=== PATIENT | female | born 1955 | race Hispanic/Latino ===

== ENCOUNTER 2020-06-20 08:35 | Emergency (ER) | payer BC, OTHER ==
[~2020-06-20] VITALS: Ht 162.6 cm; Wt 67.1 kg
[~2020-06-20 08:35] MED LIST: ADVIL PO; LIPITOR PO
--- NOTE | 2020-06-20 09:10 | NUR ---
Eduardo kessler in [facility] - 06/20/20 at 0935 by GILMA PT GIVEN PO RODRIGUEZ
--- NOTE | 2020-06-20 09:10 | NUR ---
PT GIVEN PO CHALLENGE WITHOUT VOMITING. PT INSTRUCTED TO DRINK MORE WATER AT HOME
[2020-06-20] MEDS ORDERED: DOXYCYCLINE HY100 MG PO (09:25)
--- OUTSIDE RECORDS SUMMARY | 2020-06-20 21:09 | XMS REPORT | Continuity of Care Document ---
Author Author [facility] t Organization [facility] t Address [address] [place] [address] Phone Unavailable Care Team Providers Care Clinical Staff Pharmacist Name Role Phone DO Opal FREGOSO PCP Payers Payer Name Policy Type Policy Number Effective Date Expiration Date [id number] 2019 00:00: 00 [facility] Problems Condition Name Condition Details Condition Category Status Onset Date Resolution Date Last Treatment Date Treating Clinician Comments Source Problem Condition Active [facility] Allergies, Adverse Reactions, Alerts Allergy Name Allergy Type Status Severity Reaction(s) Onset Date Inacti ve Date Treating Clinician Comments Source Ketorolac Allergy to substance Active 2020-06-20 00:00:00 [facility] No Known Allergies DA Active U 2011-08-04 00:00:00 [facility] Social History Social Habit Start Date Stop Date Quantity Comments Source Sex Ass[birth year] At 1955 00:00:00 1955 00:00:00 Female [facility] Medications Ordered Medication Name Filled Medication Name Start Date Stop Da te Current Medication? Ordering Clinician Indication Dosage Frequency Signature (SIG) Comments Components Source Doxycycline Hyclate Doxycycline Hyclate 2020-06-20 09:25:00 Yes 100 Twice A Day [facility] Advil Advil Yes As Needed [facility] Lipitor Lipitor Yes Daily [facility] Vital Signs Vital Name Observation Time Observation Value Comments Source Weight 2020-06-20 08:59:00 148 [lb_av] [facility] BMI (Body Mass Index) 2020-06-20 08:59:00 25.4 kg/m2 [facility] Procedures This patient has no known procedures. Plan of Care Planned Activity Planned Date Details Comments Source Instructions Sinusitis - Acute [facility] Encounters Start Date/Time End Date/Time Encounter Type Admission Type Attendi [facility] Facility Care Department Encounter ID Source 2020-06-20 09:00:00 2020-06-20 09:37:00 Departed Emergency Room [facility] [id number] [facility] Results Test Description Test Time Test Comments Results Result Comments Source SCR MAMM BILATERAL DOMINIQUE CAD DIGITAL 2019-12-17 15:24:21 - SCR MAMM BILATERAL DOMINIQUE CAD DIGITALBILATERAL DIGITAL SCREENING MAMMOGRAM 3D/2D WITH CAD: 12/17/2019CLINICAL: Asymptomatic. Digital breast tomosynthesis was performed in addition to routine CC and MLO views. Current mammographic images were evaluated by either a [employer] M-Vu or a [employer] ImageChecker CAD (computer aided detection system). Comparison is made to exams dated 03/23/2019 mammogram - [facility] and 10/30/2018 mammogram - [facility]. There are scattered fibroglandular tissues in both breasts. There is a biopsy clip in the right breast. No suspicious mass, architectural distortion, malignant type calcification, or lymph node abnormality detected. Breast architecture is stable compared to prior exams.IMPRESSION: NEGATIVEThere is no mammographic evidence of malignancy. Resume annual screening mammography in one year. Aleksandr Reed M.D. ss/penrad:12/17/2019 15:24:21 Relationship Mgr: Teodora PIERRE, [facility] sent: BIRADS 1-2 Normal Mammogram BI-RADS: 1 Negative DIAG MAMM BILATERAL DOMINIQUE CAD DIGITAL 2019-03-23 10:37:13 - DIAG MAMM BILATERAL DOMINIQUE CAD DIGITALBILATERAL DIGITAL DIAGNOSTIC MAMMOGRAM 3D/2D WITH CAD: 03/23/2019CLINICAL: Followup to previous exam. Digital breast tomosynthesis was performed in addition to routine CC and MLO views. Current mammographic images were evaluated by either a [employer]kin M-Vu or a [employer] ImageChecker CAD (computer aided detection system). Comparison is made to exam dated 10/30/2018 mammogram - [facility]. There are scattered fibroglandular tissues in both breasts. There is a biopsy clip in the right breast. No suspicious mass, architectural distortion, malignant type calcification, or lymph node abnormality detected. Breast architecture is stable compared to prior exams.IMPRESSION: BENIGNThere is no mammographic evidence of malignancy. Resume annual screening mammography in one year. Didier Dawkins M.D. qn/:03/23/2019 10:37:13 Relationship Mgr: Arielle PIERRE, [facility] sent: BIRADS 1-2 Normal Mammogram BI-RADS: 2 Benign SURGICAL SPECIMENS 2018-11-21 12:15:00 RUN DATE: 11/21/18 [facility] *LIVE* PAGE 1 RUN TIME: 1215 Specimen Inquiry RUN USER: INTERFACE PATIENT: GLORIA MAIN LOC: [facility] [place] #: [id number] AGE/SX: 63/F ROOM: RE11/15/18REG DR: Vineet Fregoso DO : 55 BED: DIS: STATUS: PRE REF TLOC: SPEC #: [id number] RECD: 11/16/18 STATUS: LAURIE REIsabelle #: [id number] YESSENIA: 11/16/[address]: Vineet Fregoso DO ENTERED: 11/21/18 SP TYPE: SURG SPEC OTHR DR: No Primary or Family PhysicianORDERED: LEVEL 4 CODES: [id number] - BREAST, NOS COPIES TO: No Primary or Family Physician Vineet Fregoso DO [address] [facility] [address] [place] [address] PROCEDURES: LEVEL 4 (Incomplete) TISSUES: 1. BREAST, NOS - Breast, right, 9:00, 2 cm FN, core bx. FINAL DIAGNOSIS Breast, right, 9:00, 2 cm FN, core bx.: Ductal hyperplasia without atypia; fibrocystic disease. GROSS AND MICROSCOPIC GROSS EXAMINATION: Location: Breast, right, 9:00, 2 cm FN, core bx.. Dimensions and appearance: 0.7 x 0.3 x 0.3 cm, fibrofatty. Sections: Entirely submitted. Received in formalin are the above designated biopsies. They are composed of yellow-white fibrofatty tissue. They are submitted for microscopic examination as indicated above. MICROSCOPIC EXAMINATION: Sections of the "Breast, right, 9:00, 2 cm FN, core bx." reveal changes of ductal hyperplasia without atypia. The immunostain for e-cadherin is positive and the p63 stain shows a myoepithelial layer surrounding the areas of interest. (When special stains have been reviewed, the appropriate positive/negative controls have been reviewed and are appropriately positive/negative). CONTINUED ON NEXT PAGE --------- ---RUN DATE: 11/21/18 [facility] *LIVE* PAGE 2 RUN TIME: 1215 Specimen Inquiry RUN USER: INTERFACE SPEC #: [id number] PATIENT: GLORIA MAIN #[id number] (Continued) POST-OP DIAGNOSIS ATEC MARKER PRE-OP DIAGNOSIS 9:00 retroareolar mass, diagnosis: papillary lesion, FA, complicated FCC, CA REVIEWED BY: Signed SIGNATURE ON Delilah Boland MD 11/21/18 9385 END OF REPORT
--- NOTE | 2020-08-17 14:10 | Emergency Department Note ---
History of Present Illnes History of Present Illness Chief Complaint: Eye, Ear, Nose, Throat, Dental History of Present Illness This is a 64 year old female who presents with complaint of sinus congestion and right-sided headache. She states that she has chronic environmental allergies that her primary care physician started her on Lisa-D and a nasal spray which she is unaware of the name. She states that her symptoms have worsened despite these medications. She states that she feels that both her ears (right greater than left) feel full and congested. She says she also has lot of pressure under her right maxilla. She denies any fever or chills. She's had some nausea but no vomiting. She's had no cough. She has no sore throat. She states that she has had a dry mouth which she associates with the duration of taking the Lisa-D. Historian: Patient Arrival Mode: [employer] Head Cook Required: No Onset (how long ago): week(s) Onset quality: gradual Duration (how long): week(s) Progression: worsening Context: Denies recent surgery, Denies recent immobilization, Denies recent travel, Denies trauma/injury Relieving factors: none Exacerbating factors: none Associated symptoms: Reports headaches; Denies chest pain, Denies cough, Denies diaphoresis, Denies fever/chills, Denies loss of appetite, Denies malaise, Denies shortness of breath, Denies syncope Treatments prior to arrival: other (taking Lisa-D and a nasal spray.) Past Medical/Family History Physician Review I have reviewed the patient's past medical and family history. Any updates have been documented here. Past Medical History Recent Fever: No Clinical Suspicion of Infectio: No New/Unexplained Change in Ment: No Past Medical History: Hyperlipedemia Other Medical History: ALLERGIES Past Surgical History: Hysterectomy Other Surgery: FOOT AND EAR SURGIES Social History Smoking Cessation: Never Smoker Counseling Performed: No Alcohol Use: None Any Illegal Drug Use: No Physically hurt or threatened: No Other Any Pre-Existing Lines (PICC,: No Review of Systems Review of Systems Constitutional: Denies chills, Denies fever, Denies malaise EENTM: Reports as per HPI, Reports ear pain, Reports nose congestion; Denies blurred vision, Denies tearing, Denies double vision, Denies ear discharge, Denies throat pain, Denies throat swelling, Denies mouth pain, Denies mouth swelling Cardiovascular: Denies chest pain, Denies edema, Denies palpitations Respiratory: Denies chest congestion, Denies cough, Denies hemoptysis, Denies pain on inspiration, Denies dyspnea Gastrointestinal: Reports nausea (mild); Denies abdominal pain, Denies diarrhea, Denies vomiting Genitourinary: Denies discharge, Denies dysuria, Denies frequency, Denies hematuria Integumentary: Reports no symptoms Neurological: Reports no symptoms Psychological: Reports no symptoms Endocrine: Reports increased thirst; Denies excessive sweating, Denies intolerance to cold Hematological/Lymphatic: Denies easy bleeding, Denies easy bruising Physical Exam Related Data Allergies: Coded Allergies: ketorolac (Verified Allergy, Unknown, 06/20/20) Triage Vital Signs Vital Signs Date Time Temp Pulse Resp B/P (MAP) Pulse Ox O2 Delivery O2 Flow Rate FiO2 06/20/20 08:59 99.5 101 18 158/88 95 Physical Exam CONSTITUTIONAL Constitutional: Present well-developed, Present well-nourished; Absent ill appearing HENT HENT: Present normocephalic, Present atraumatic, Present mucosae dry, Present dentition normal, Present other (right maxillary sinus tenderness); Absent tonsillar excudate HENT L/R: Present left TM normal, Present right TM normal, Present left canal normal, Present right canal normal, Present left ext ear normal, Present right ext ear normal EYES Eyes: Reports conjunctivae normal; Denies left eye discharge, Denies right eye discharge NECK Neck: Present ROM normal, Present supple PULMONARY Pulmonary: Present effort normal, Present breath sounds normal; Absent respiratory distress (complete full sentences and handle secretions) CARDIOVASCULAR Cardiovascular: Present regular rhythm, Present heart sounds normal, Present intact distal pulses, Present capillary refill normal, Present normal rate GASTROINTESTINAL Abdominal: Present soft, Present nontender, Present bowel sounds normal; Absent guarding, Absent mass, Absent rebound, Absent left CVA tenderness, Absent right CVA tenderness GENITOURINARY SKIN Skin: Present warm, Present dry; Absent rash MUSCULOSKELETAL NEUROLOGICAL Neurological: Present alert, Present oriented x 3 PSYCHOLOGICAL Psychological: Present mood/affect normal, Present thought content normal, Present judgement normal Assessment & Plan Medical Decision Making MDM Differential dx for upper respiratory symptoms includes, but is not limited to URI, bacterial sinusitis, viral illness, allergies. Patient with signs of dehydration which seems to be due to lack of by mouth intake from her history. Tolerated by mouth in the emergency department, so does not require IV fluids and encouraged to continue by mouth hydration at home. Assessment & Plan Final Impression: (1) Sinusitis (2) Hypovolemia (3) Dehydration (4) Volume depletion Depart Disposition: HOME, SELF-CARE Last Vital Signs Date Time Temp Pulse Resp B/P (MAP) Pulse Ox O2 Delivery O2 Flow Rate FiO2 06/20/20 08:59 99.5 101 18 158/88 95 Home Meds Active Scripts Ibuprofen (IBUPROFEN) 600 Mg Tablet, 600 MG PO Q6H PRN for MODERATE PAIN (4-6), #30 TAB Prov:DARLING BOOTHE 08/05/20 Metronidazole (METRONIDAZOLE) 500 Mg Tablet, 500 MG PO Q8H, #30 TAB take with juice and food Prov:DARLING BOOTHE 08/05/20 Levofloxacin (LEVAQUIN) 750 Mg Tablet, 750 MG PO DAILY, #10 TAB Prov:DARLING BOOTHE 08/05/20 Ondansetron (ONDANSETRON ODT) 8 Mg Tab.rapdis, 4 MG SL Q4HR PRN for NAUSEA AND VOMITING, #30 TAB Prov:DARLING BOOTHE 08/05/20 Doxycycline Hyclate (DOXYCYCLINE HYCLATE) 100 Mg Capsule, 100 MG PO BID for 7 Days, #14 0 Refills Prov:MARY EDDY MD 06/20/20 Reported Medications [Lipitor] No Conflict Check, PO DAILY 11/03/16 [Advil] No Conflict Check, PO PRN 11/03/16 MARY EDDY MD Jun 20, 2020 09:55
== END 2020-06-20 09:37 | disposition home or self-care (01) ==
LOC: FSED 09:00
DX: R51 Headache (principal); J32.9 Chronic sinusitis, unspecified; E86.1 Hypovolemia; E86.0 Dehydration; E78.5 Hyperlipidemia, unspecified
CPT/HCPCS: 99282

== ENCOUNTER 2020-08-05 18:29 | Emergency (ER) | payer OTHER ==
[~2020-08-05] VITALS: Ht 162.6 cm; Wt 65.8 kg
[~2020-08-05 18:29] MED LIST changes: +DOXYCYCLINE HY100 MG PO
--- NOTE | 2020-08-05 18:50 | NUR ---
REC'D REPORT FROM OFF GOING NS.
[2020-08-05] MEDS ORDERED: SODIUM CHLORIDE 0.9% 1000ML 1,000 ML IV STA (18:54)
[2020-08-05] MEDS ORDERED: SODIUM CHLORIDE FLUSH 10 ML SYR INJ PRN (19:00)
[2020-08-05] MEDS ORDERED: ONDANSETRON HCL INJ 2MG/ML 2ML 2 MG/ML VIAL IV NR (19:00)
--- NOTE | 2020-08-05 19:02 | Emergency Department Note ---
History of Present Illnes History of Present Illness Chief Complaint: generalize abdominal pain History of Present Illness This is a 64 year old female. was doing well until several months ago then itchy eyes, nose throat(allergy symptoms) then 1 d ago fink then generalize abdominal pain. +n/v Historian: Patient Arrival Mode: Car History limited by: condition of the patient (normal) Campus Receptionist Required: No Onset (how long ago): hour(s) (14) Location: see above Quality: dull Radiation: Reports non-radiation Severity: moderate Onset quality: gradual Duration (how long): hour(s) (14) Timing of current episode: constant Progression: worsening Chronicity: new Context: Denies recent illness, Denies recent surgery, Denies recent immobilization, Denies recent travel, Denies trauma/injury, Denies new medications, Denies hx of DVT/PE, Denies non-compliance w/ medications Relieving factors: rest Exacerbating factors: movement Associated symptoms: Reports headaches, Reports nausea/vomiting Treatments prior to arrival: none Past Medical/Family History Physician Review I have reviewed the patient's past medical and family history. Any updates have been documented here. Past Medical History Recent Fever: No Clinical Suspicion of Infectio: No New/Unexplained Change in Ment: No Past Medical History: GERD, Hyperlipedemia Other Medical History: ALLERGIES, high chol Past Surgical History: Hysterectomy Other Surgery: FOOT AND EAR SURGIES Social History Smoking Cessation: Never Smoker Counseling Performed: No Alcohol Use: None Any Illegal Drug Use: No Physically hurt or threatened: No Other Any Pre-Existing Lines (PICC,: No Review of Systems Review of Systems Constitutional: Reports no symptoms EENTM: Reports as per HPI Cardiovascular: Reports no symptoms Respiratory: Reports no symptoms Gastrointestinal: Reports as per HPI Genitourinary: Reports no symptoms Musculoskeletal: Reports no symptoms Integumentary: Reports no symptoms Neurological: Reports as per HPI Psychological: Reports no symptoms Endocrine: Reports no symptoms Hematological/Lymphatic: Reports no symptoms Review of other systems: All other systems negative Physical Exam Related Data Allergies: Coded Allergies: ketorolac (Verified Allergy, Unknown, 06/20/20) Triage Vital Signs Vital Signs Date Time Temp Pulse Resp B/P (MAP) Pulse Ox O2 Delivery O2 Flow Rate FiO2 08/05/20 18:40 98.8 85 18 153/84 97 Vital signs reviewed: Yes Physical Exam CONSTITUTIONAL Constitutional: Present well-developed, Present well-nourished HENT HENT: Present normocephalic, Present atraumatic, Present oropharynx luisito ar/moist, Present nose normal HENT L/R: Present left ext ear normal, Present right ext ear normal EYES Eyes: Reports PERRL, Reports conjunctivae normal NECK Neck: Present ROM normal PULMONARY Pulmonary: Present effort normal, Present breath sounds normal CARDIOVASCULAR Cardiovascular: Present regular rhythm, Present heart sounds normal, Present capillary refill normal, Present normal rate GASTROINTESTINAL Abdominal: Present soft, Present bowel sounds normal, Present tender (rlq), Present guarding; Absent mass, Absent rebound GENITOURINARY Genitourinary: Present exam deferred SKIN Skin: Present warm, Present dry MUSCULOSKELETAL Musculoskeletal: Present ROM normal NEUROLOGICAL Neurological: Present alert, Present oriented x 3, Present no gross motor or sensory deficits PSYCHOLOGICAL Psychological: Present mood/affect normal, Present judgement normal Results Laboratory Lab results reviewed: Yes Laboratory comments cbc,bmp and lft normal Critical Care Time Comments pt signed out ama despite possibility of or permanent disability Assessment & Plan Medical Decision Making MDM see below Assessment & Plan Final Impression: (1) Headache (2) Abdominal pain (3) Left against medical advice Depart Disposition: HOME, SELF-CARE Last Vital Signs Date Time Temp Pulse Resp B/P (MAP) Pulse Ox O2 Delivery O2 Flow Rate FiO2 08/05/20 18:40 98.8 85 18 153/84 97 Home Meds Active Scripts Ibuprofen (IBUPROFEN) 600 Mg Tablet, 600 MG PO Q6H PRN for MODERATE PAIN (4-6), #30 TAB Prov:DARLING BOOTHE 08/05/20 Metronidazole (METRONIDAZOLE) 500 Mg Tablet, 500 MG PO Q8H, #30 TAB take with juice and food Prov:DARLING BOOTHE 08/05/20 Levofloxacin (LEVAQUIN) 750 Mg Tablet, 750 MG PO DAILY, #10 TAB Prov:DARLING BOOTHE 08/05/20 Ondansetron (ONDANSETRON ODT) 8 Mg Tab.rapdis, 4 MG SL Q4HR PRN for NAUSEA AND VOMITING, #30 TAB Prov:DARLING BOOTHE 08/05/20 Doxycycline Hyclate (DOXYCYCLINE HYCLATE) 100 Mg Capsule, 100 MG PO BID for 7 Days, #14 0 Refills Prov:MARY EDDY MD 06/20/20 Reported Medications [Lipitor] No Conflict Check, PO DAILY 11/03/16 [Advil] No Conflict Check, PO PRN 11/03/16 Medications in the ED Sodium Chloride 10 ml PRN PRN INJ IV SITE FLUSH; Start 08/05/20 at 19:00; Stop 09/04/20 at 18:59; Status UNV Ondansetron HCl 4 mg NOW STAT IV ; Start 08/05/20 at 18:54; Stop 08/05/20 at 18:55; Status UNV Sodium Chloride 1,000 ml @ 1,000 mls/hr Q1H STAT IV ; Start 08/05/20 at 18:54; Stop 08/05/20 at 19:53 DARLING BOOTHE Aug 05, 2020 19:02
--- OUTSIDE RECORDS SUMMARY | 2020-08-05 19:03 | XMS REPORT | Continuity of Care Document ---
Author Author [facility] t Organization [facility] Address [address] [place] [address] Phone Unavailable Care Team Providers Care Lcsw Name Role Phone DO Opal FREGOSO PCP Payers Payer Name Policy Type Policy Number Effective Date Expiration Date [id number] 2019 00:00: 00 [facility] Problems Condition Name Condition Details Condition Category Status Onset Date Resolution Date Last Treatment Date Treating Clinician Comments Source Problem Condition Active [facility] Allergies, Adverse Reactions, Alerts Allergy Name Allergy Type Status Severity Reaction(s) Onset Date Inacti ve Date Treating Clinician Comments Source Ketorolac Allergy to substance Active 2020-06-20 00:00:00 [facility] No Known Allergies DA Active U 2011-08-04 00:00:00 [facility] Social History Social Habit Start Date Stop Date Quantity Comments Source Sex Assigned At 1955 00:00:00 1955 00:00:00 Female [facility] Medications Ordered Medication Name Filled Medication Name Start Date Stop Da te Current Medication? Ordering Clinician Indication Dosage Frequency Signature (SIG) Comments Components Source Doxycycline Hyclate Doxycycline Hyclate 2020-06-20 09:25:00 Yes 100 Twice A Day [facility] Advil Advil Yes As Needed [facility] Lipitor Lipitor Yes Daily [facility] Vital Signs Vital Name Observation Time Observation Value Comments Source Weight 2020-06-20 08:59:00 148 [lb_av] [facility] BMI (Body Mass Index) 2020-06-20 08:59:00 25.4 kg/m2 [facility] Procedures This patient has no known procedures. Plan of Care Planned Activity Planned Date Details Comments Source Instructions Sinusitis - Acute [facility] Encounters Start Date/Time End Date/Time Encounter Type Admission Type Attendi [facility] Facility Care Department Encounter ID Source 2020-06-20 09:00:00 2020-06-20 09:37:00 Departed Emergency Room [facility] [place] [place] [id number] [facility] Results Test Description Test Time Test Comments Results Result Comments Source SCR MAMM BILATERAL DOMINIQUE CAD DIGITAL 2019-12-17 15:24:21 - SCR MAMM BILATERAL DOMINIQUE CAD DIGITALBILATERAL DIGITAL SCREENING MAMMOGRAM 3D/2D WITH CAD: 12/17/2019CLINICAL: Asymptomatic. Digital breast tomosynthesis was performed in addition to routine CC and MLO views. Current mammographic images were evaluated by either a [employer] M-Vu or a [employer] ImageChecker CAD (computer aided detection system). Comparison is made to exams dated 03/23/2019 mammogram - [facility] and 10/30/2018 mammogram - [facility] [...] one year. Aleksandr Reed M.D. ss/penrad:12/17/2019 15:24:21 Chief Quality Officer: Teodora PIERRE, [facility] sent: BIRADS 1-2 Normal Mammogram BI-RADS: 1 Negative DIAG MAMM BILATERAL DOMINIQUE CAD DIGITAL 2019-03-23 10:37:13 - DIAG MAMM BILATERAL DOMINIQUE CAD DIGITALBILATERAL DIGITAL DIAGNOSTIC MAMMOGRAM 3D/2D WITH CAD: 03/23/2019CLINICAL: Followup to previous exam. Digital breast tomosynthesis was performed in addition to routine CC and MLO views. Current mammographic images were evaluated by either a [employer] M-Vu or a [employer] ImageChecker CAD (computer aided detection system). Comparison [...] one year. Didier Dawkins M.D. qn/:03/23/2019 10:37:13 Chief Quality Officer: Arielle PIERRE, [facility] sent: BIRADS 1-2 Normal Mammogram BI-RADS: 2 Benign SURGICAL SPECIMENS 2018-11-21 12:15:00 RUN DATE: 11/21/18 [facility] *LIVE* PAGE 1 RUN TIME: 1215 Specimen Inquiry RUN USER: INTERFACE PATIENT: GLORIA MAIN LOC: [facility] [place] #: [id number] AGE/SX: 63/F ROOM: RE11/15/18REG DR: Vineet Fregoso DO : 55 BED: DIS: STATUS: PRE REF TLOC: SPEC #: [id number] RECD: 11/16/18 STATUS: LAURIE KIRK #: [id number] YESSENIA: 11/16/[address]: Vineet Fregoso DO ENTERED: 11/21/18 SP TYPE: SURG SPEC OTHR DR: No Primary or Family PhysicianORDERED: LEVEL 4 CODES: [id number] - BREAST, NOS COPIES TO: No Primary or Family Physician Vineet Fregoso DO [address] [facility] [address] [place] [address] PROCEDURES: LEVEL 4 (Incomplete) TISSUES: 1. BREAST, [...] NEXT PAGE --------- ---RUN DATE: 11/21/18 [facility] *L[facility]* PAGE 2 RUN TIME: 1215 Specimen Inquiry RUN USER: INTERFACE SPEC #: [id number] PATIENT: GLORIA MAIN #[id number] (Continued) POST-OP DIAGNOSIS ATEC MARKER PRE-OP DIAGNOSIS 9:00 retroareolar mass, diagnosis: papillary lesion, FA, complicated FCC, [place] REVIEWED BY: Signed SIGNATURE ON Delilah Boland MD 11/21/18 3510 END OF REPORT
[2020-08-05] MEDS ORDERED: ONDANSETRON HCL INJ 2MG/ML 2ML 2 MG/ML VIAL IV STA (19:16)
[2020-08-05] MEDS ORDERED: SODIUM CHLORIDE 0.9% 1000ML 1,000 ML ONE (19:20)
[2020-08-05] MEDS ORDERED: ONDANSETRON HCL INJ 2MG/ML 2ML 2 MG/ML VIAL ONE (19:20)
[2020-08-05] MEDS ORDERED: SODIUM CHLORIDE 0.9% 50ML 0 ML ONE (19:27)
[2020-08-05] MEDS ORDERED: IOPAMIDOL 370 MG/ML 200 ML INFUS..BTL INJ ONE (19:27)
[2020-08-05] MEDS ORDERED: METHYLPREDNISOLONE SOD SUCC 125 MG/2ML VIAL ONE (19:30)
[2020-08-05] MEDS ORDERED: METHYLPREDNISOLONE SOD SUCC 125 MG/2ML VIAL IV ONE (19:30)
--- NOTE | 2020-08-05 20:00 | NUR ---
PT AND SPOUSE CONCERNED OVER DEDUCTABLE THEY WILL HAVE TO PAY. NOT WILLING TO HAVE CT'S DONE. REQUESTING TO LEAVE. MD INFORMED AND IN TO SPEAK WITH PT AND SPOUSE.
[2020-08-05] MEDS ORDERED: LEVAQUIN750 MG PO (20:09)
[2020-08-05] MEDS ORDERED: ONDANSETRON ODT8 MG SL (20:09)
[2020-08-05] MEDS ORDERED: METRONIDAZOLE500 MG PO (20:09)
[2020-08-05] MEDS ORDERED: IBUPROFEN600 MG PO (20:09)
--- NOTE | 2020-08-05 20:10 | NUR ---
PT SIGNED AMA FORMS. DISCHARGED WITH DC INST AND RX
[2020-08-05 20:18] VITALS: BP 150/85
== END 2020-08-05 20:10 | disposition home or self-care (01) ==
LOC: FSED 19:01
DX: R51 Headache (principal); R10.84 Generalized abdominal pain; R11.2 Nausea with vomiting, unspecified; E78.5 Hyperlipidemia, unspecified; K21.9 Gastro-esophageal reflux disease without esophagitis
CPT/HCPCS: 80048; 80076; 81003; 85025; 96374; 96376; 99283; J2405; J2930; J7030; Q9967

== ENCOUNTER 2020-11-30 22:17 | Emergency (ER) | payer OTHER ==
[~2020-11-30 22:17] MED LIST changes: +IBUPROFEN600 MG PO; +LEVAQUIN750 MG PO; +METRONIDAZOLE500 MG PO; +ONDANSETRON ODT8 MG SL
== END 2020-11-30 23:10 | disposition left against medical advice (07) ==
LOC: ER 23:10
DX: R06.02 Shortness of breath (principal)

== ENCOUNTER 2020-12-12 18:10 | Emergency (ER) | payer OTHER ==
[~2020-12-12] VITALS: Ht 162.6 cm; Wt 65.8 kg
[2020-12-12 19:38] LABS: BASOPHILS % 0.4 % (0.0-1.0); EOSINOPHILS % 0.4 % (0.0-6.0); HEMATOCRIT 43.1 % (34.2-44.1); HEMOGLOBIN 13.6 g/dL (12.0-16.0); LYMPHOCYTES # (AUTO) 1.6 (1.0-3.2); MEAN CORPUSCULAR HEMOGLOBIN 30.3 pg (28-32); MEAN CORPUSCULAR HGB CONC 31.6 g/dL (31-35); MONOCYTES # (AUTO) 0.6 (0.2-0.8); MONOCYTES % 7.9 % (4.4-11.3); NEUTROPHILS # (AUTO) 5.8 (2.1-6.9); NEUTROPHILS % 71.1 % (38.7-80.0); PLATELET COUNT 185 x10e3/uL (140-360); RED BLOOD COUNT 4.49 x10e6/uL (3.6-5.1); RED CELL DISTRIBUTION WIDTH 13.1 % (11.7-14.4)
[2020-12-12 19:52] LABS: ALANINE AMINOTRANSFERASE 25 IU/L (0-55); ALBUMIN 4.7 g/dL (3.5-5.0); ALBUMIN/GLOBULIN RATIO 1.5 (0.8-2.0); ALKALINE PHOSPHATASE 52 IU/L (40-150); ANION GAP 17.6 mmol/L (8-16); BLOOD UREA NITROGEN 5 mg/dL (7-26); BUN/CREATININE RATIO 8 (6-25); CALCIUM 9.4 mg/dL (8.4-10.2); CARBON DIOXIDE 23 mmol/L (22-29); CHLORIDE 103 mmol/L (98-107); CREATININE, SERUM 0.66 mg/dL (0.57-1.11); EST GLOMERULAR FILTRATION RATE > 60 ML/MIN (60-); GLUCOSE 112 mg/dL (74-118); POTASSIUM 3.6 mmol/L (3.5-5.1); SODIUM 140 mmol/L (136-145)
[2020-12-12 19:53] LABS: LIPASE 10 U/L (8-78)
[2020-12-12] MEDS ORDERED: DONNATAL/LIDOCAINE/MAALOX 30 ML SUSP PO ONE (20:45)
[2020-12-12] MEDS ORDERED: LIDOCAINE VISC 2% SOLN 15 ML UDC PO ONE (21:00)
[2020-12-12] MEDS ORDERED: BELLADONNA ALK/PHENOBARBITAL 5 ML UDC PO ONE (21:00)
[2020-12-12] MEDS ORDERED: MAGNESIUM/ALUMINUM/SIMETHICONE 30 ML UDC PO ONE (21:00)
== END 2020-12-12 21:11 | disposition home or self-care (01) ==
LOC: ER 18:43
DX: R07.9 Chest pain, unspecified (principal); I10 Essential (primary) hypertension; E78.5 Hyperlipidemia, unspecified; Z88.8 Allergy status to other drugs, medicaments and biological substances
CPT/HCPCS: 36415; 71045; 80053; 83690; 84484; 85025; 93005; 99284

== ENCOUNTER 2021-02-08 13:03 | Inpatient (IN) | payer MEDICARE ==
[2021-02-08] VITALS (8 sets, daily range): BP systolic 117–144; BP diastolic 75–83
[~2021-02-08] VITALS: Ht 162.6 cm; Wt 55.8 kg
[2021-02-08] MEDS ORDERED: SODIUM CHLORIDE 0.9% 1000ML 1,000 ML IV STA (13:07)
[2021-02-08] MEDS ORDERED: PANTOPRAZOLE 40 MG 10ML VIAL IV NR (13:30)
[2021-02-08] MEDS ORDERED: ONDANSETRON HCL INJ 2MG/ML 2ML 2 MG/ML VIAL IV NR (13:30)
[2021-02-08] MEDS ORDERED: MORPHINE SULFATE INJ 2 MG/ML SYR IV ONE (13:30)
[2021-02-08 13:32] LABS: BASOPHILS % 0.6 % (0.0-1.0); EOSINOPHILS # (AUTO) 0.1 (0.0-0.4); EOSINOPHILS % 0.7 % (0.0-6.0); HEMATOCRIT 41.5 % (34.2-44.1); HEMOGLOBIN 13.3 g/dL (12.0-16.0); LYMPHOCYTES # (AUTO) 1.8 (1.0-3.2); LYMPHOCYTES % 25.6 % (18.0-39.1); MEAN CORPUSCULAR HEMOGLOBIN 30.9 pg (28-32); MEAN CORPUSCULAR VOLUME 96.3 fL (81-99); MONOCYTES # (AUTO) 0.6 (0.2-0.8); MONOCYTES % 8.4 % (4.4-11.3); NEUTROPHILS # (AUTO) 4.6 (2.1-6.9); NEUTROPHILS % 64.4 % (38.7-80.0); PLATELET COUNT 186 x10e3/uL (140-360); RED BLOOD COUNT 4.31 x10e6/uL (3.6-5.1); RED CELL DISTRIBUTION WIDTH 13.2 % (11.7-14.4)
[2021-02-08 13:33] LABS: CLARITY,URINE CLEAR (CLEAR); COLOR,URINE YELLOW (YELLOW); KETONES,URINE TRACE (NEGATIVE); LEUKOCYTE ESTERASE ,URINE NEGATIVE (NEGATIVE); NITRITE,URINE NEGATIVE (NEGATIVE); PROTEIN,URINE DIPSTICK NEGATIVE (NEGATIVE); URINE UROBILINOGEN 0.2 mg/dL (0.2 - 1)
[2021-02-08 13:39] LABS: BACTERIA,URINE FEW /HPF; EPITHELIAL CELLS,URINE FEW /LPF; RBC,URINE 0-5 /HPF (0-5); WBC,URINE (MAN) 0-5 /HPF (0-5)
[2021-02-08 13:40] LABS: INR 0.94; PROTHROMBIN TIME 13.1 seconds (11.9-14.5)
[2021-02-08 13:41] LABS: PARTIAL THROMBOPLASTIN TIME 26.9 seconds (23.8-35.5)
[2021-02-08 13:51] LABS: ALANINE AMINOTRANSFERASE 10 IU/L (0-55); ALBUMIN 4.5 g/dL (3.5-5.0); ALBUMIN/GLOBULIN RATIO 1.3 (0.8-2.0); ALKALINE PHOSPHATASE 63 IU/L (40-150); AMYLASE 51 U/L (25-125); ANION GAP 13.5 mmol/L (8-16); BLOOD UREA NITROGEN 6 mg/dL (7-26); BUN/CREATININE RATIO 9 (6-25); CALCIUM 9.2 mg/dL (8.4-10.2); CARBON DIOXIDE 27 mmol/L (22-29); CHLORIDE 103 mmol/L (98-107); CREATINE KINASE 113 IU/L (29-168); CREATININE, SERUM 0.66 mg/dL (0.57-1.11); EST GLOMERULAR FILTRATION RATE > 60 ML/MIN (60-); GLUCOSE 108 mg/dL (74-118); LIPASE 16 U/L (8-78); MAGNESIUM 2.2 MG/DL (1.3-2.1); POTASSIUM 3.5 mmol/L (3.5-5.1); SODIUM 140 mmol/L (136-145)
[2021-02-08] MEDS ORDERED: BELLADONNA ALK/PHENOBARBITAL 5 ML UDC PO NR (14:00)
[2021-02-08] MEDS ORDERED: MAGNESIUM/ALUMINUM/SIMETHICONE 30 ML UDC PO NR (14:00)
[2021-02-08] MEDS ORDERED: IOPAMIDOL 370 MG/ML 200 ML INFUS..BTL INJ ONE (14:05)
[2021-02-08] MEDS ORDERED: SODIUM CHLORIDE 0.9% 50ML 50 ML ONE (14:05)
[2021-02-08] MEDS ORDERED: LIDOCAINE VISC 2% SOLN 15 ML UDC PO NR (14:15)
[2021-02-08] MEDS ORDERED: MORPHINE SULFATE INJ 2 MG/ML SYR IV PRN (16:15)
[2021-02-08] MEDS ORDERED: SODIUM CHLORIDE 0.9% 1000ML 1,000 ML IV SCH (16:15)
[2021-02-08] MEDS ORDERED: ONDANSETRON HCL INJ 2MG/ML 2ML 2 MG/ML VIAL IV PRN (16:15)
[2021-02-08] MEDS ORDERED: OMEPRAZOLE40 MG PO (17:56)
[2021-02-08] MEDS ORDERED: PEPCID20 MG PO (17:56)
[2021-02-08] MEDS ORDERED: FAMOTIDINE20 MG PO (18:02)
[2021-02-08] MEDS ORDERED: CRESTOR10 MG PO (19:33)
[2021-02-08] MEDS: PANTOPRAZOLE 40 MG 10ML VIAL IV SCH (21:08)
[2021-02-08] MEDS: MORPHINE SULFATE INJ 4 MG/ML INJ 1ML IV PRN (21:14)
[2021-02-08 22:24] LABS: CREATINE KINASE MB 0.4 ng/mL (0-5.0)
[2021-02-09] VITALS (8 sets, daily range): BP systolic 92–131; BP diastolic 55–74
[2021-02-09 05:17] LABS: BASOPHILS # (AUTO) 0.1 (0.0-0.1); BASOPHILS % 0.8 % (0.0-1.0); EOSINOPHILS # (AUTO) 0.1 (0.0-0.4); EOSINOPHILS % 1.6 % (0.0-6.0); HEMATOCRIT 36.1 % (34.2-44.1); HEMOGLOBIN 11.4 g/dL (12.0-16.0); LYMPHOCYTES # (AUTO) 1.8 (1.0-3.2); LYMPHOCYTES % 28.1 % (18.0-39.1); MEAN CORPUSCULAR HEMOGLOBIN 30.4 pg (28-32); MEAN CORPUSCULAR HGB CONC 31.6 g/dL (31-35); MEAN CORPUSCULAR VOLUME 96.3 fL (81-99); MONOCYTES # (AUTO) 0.6 (0.2-0.8); MONOCYTES % 9.8 % (4.4-11.3); NEUTROPHILS # (AUTO) 3.7 (2.1-6.9); NEUTROPHILS % 59.5 % (38.7-80.0); PLATELET COUNT 165 x10e3/uL (140-360); RED BLOOD COUNT 3.75 x10e6/uL (3.6-5.1); RED CELL DISTRIBUTION WIDTH 13.2 % (11.7-14.4)
[2021-02-09 05:38] LABS: ALANINE AMINOTRANSFERASE 10 IU/L (0-55); ALBUMIN 3.5 g/dL (3.5-5.0); ALBUMIN/GLOBULIN RATIO 1.4 (0.8-2.0); ALKALINE PHOSPHATASE 46 IU/L (40-150); ANION GAP 9.7 mmol/L (8-16); BLOOD UREA NITROGEN < 5 mg/dL (7-26); CALCIUM 8.5 mg/dL (8.4-10.2); CARBON DIOXIDE 26 mmol/L (22-29); CHLORIDE 107 mmol/L (98-107); CREATININE, SERUM 0.64 mg/dL (0.57-1.11); EST GLOMERULAR FILTRATION RATE > 60 ML/MIN (60-); GLUCOSE 85 mg/dL (74-118); POTASSIUM 3.7 mmol/L (3.5-5.1); SODIUM 139 mmol/L (136-145)
[2021-02-09 05:40] LABS: BUN/CREATININE RATIO 8 (6-25)
[2021-02-09 05:54] LABS: CREATINE KINASE 87 IU/L (29-168)
[2021-02-09] MEDS: PANTOPRAZOLE 40 MG 10ML VIAL IV SCH ×2 (09:00→21:34)
[2021-02-09] MEDS ORDERED: ZOLPIDEM TARTRATE 5 MG TAB PO PRN (13:00)
[2021-02-09] MEDS ORDERED: ACETAMINOPHEN 325 MG TAB PO PRN (13:00)
[2021-02-09] MEDS ORDERED: DOCUSATE SODIUM 100 MG CAP PO PRN (13:00)
[2021-02-09] MEDS: MORPHINE SULFATE INJ 4 MG/ML INJ 1ML IV PRN (13:55)
[2021-02-09 14:08] LABS: CREATINE KINASE 108 IU/L (29-168)
[2021-02-09] MEDS ORDERED: PANTOPRAZOL 40MG/SOD CHL 0.9% 250 ML IV SCH (23:00)
[2021-02-09] MEDS ORDERED: SODIUM CHLORIDE 0.9% IV SCH (23:15)
[2021-02-09] MEDS ORDERED: PANTOPRAZOLE IV SCH (23:15)
[2021-02-09] MEDS: METOCLOPRAMIDE HCL 10 MG/2ML VIAL IV SCH (23:21)
[2021-02-09] MEDS ORDERED: PANTOPRAZOLE 40 MG 10ML VIAL ONE (23:34)
[2021-02-10] VITALS (7 sets, daily range): BP systolic 94–123; BP diastolic 53–78
[2021-02-10] MEDS: METOCLOPRAMIDE HCL 10 MG/2ML VIAL IV SCH ×2 (05:30→11:52)
[2021-02-10] MEDS ORDERED: PANTOPRAZOL 40MG/SOD CHL 0.9% 50 ML IV SCH (12:00)
[2021-02-10] MEDS ORDERED: LIDOCAINE HCL 2% LOCAL INJ 5 ML SDV VIAL INJ ONE (13:50)
[2021-02-10] MEDS ORDERED: PROPOFOL IV EMULSION 10 MG/ML 20 ML VIAL ONE (13:50)
[2021-02-10] MEDS ORDERED: PANTOPRAZOLE SO40 MG PO (17:46)
[2021-02-10] MEDS ORDERED: REGLAN10 MG PO (17:46)
[2021-02-11] MEDS ORDERED: BENADRYL25 M1 PO (17:57)
[2021-02-11] MEDS ORDERED: FAMOTIDINE20 MG PO (17:57)
[2021-02-11] MEDS ORDERED: PREDNISONE20 MG PO (17:57)
== END 2021-02-10 18:22 | disposition home or self-care (01) | DRG 392 ==
LOC: ER 13:15 → ERHOLD 16:09 → INTOOBSV 16:09 → MED/SURG 17:20 → OBSVTOIN 02-10 11:23
PROVIDERS: ADMIT Internal Medicine; ATTEND Internal Medicine
PROC: 0DB68ZX Excision of Stomach, Via Natural or Artificial Opening Endoscopic, Diagnostic (ICD-10-PCS; 2021-02-10)
PROC: 0DB98ZX Excision of Duodenum, Via Natural or Artificial Opening Endoscopic, Diagnostic (ICD-10-PCS; principal; 2021-02-10 15:00)
DX: K29.70 Gastritis, unspecified, without bleeding (principal); K21.9 Gastro-esophageal reflux disease without esophagitis; K20.90 Esophagitis, unspecified without bleeding; I10 Essential (primary) hypertension; E78.5 Hyperlipidemia, unspecified; Z88.8 Allergy status to other drugs, medicaments and biological substances; Z20.822 Contact with and (suspected) exposure to COVID-19
CPT/HCPCS: 36415; 43239; 74177; 76705; 78227; 80053; 81001; 82150; 82550; 82553; 83690; 83735; 84134; 84484; 85025; 85610; 85730; 87086; 88305; 88312; 93005; 99284; A9537; G0378; J2001; J2270; J2405; J2765; J7030; J7050; Q9967; U0002

== ENCOUNTER 2021-02-11 17:30 | Emergency (ER) | payer MEDICARE ==
[~2021-02-11] VITALS: Ht 315 cm; Wt 55.8 kg
[~2021-02-11 17:30] MED LIST changes: +CRESTOR10 MG PO; +FAMOTIDINE20 MG PO; +OMEPRAZOLE40 MG PO; +PANTOPRAZOLE SO40 MG PO; +PEPCID20 MG PO; +REGLAN10 MG PO
[2021-02-11] MEDS ORDERED: FAMOTIDINE 20 MG TAB PO ONE (17:45)
[2021-02-11] MEDS ORDERED: PREDNISONE 20 MG TAB PO ONE (17:45)
[2021-02-11] MEDS ORDERED: DIPHENHYDRAMINE HCL 25 MG CAP PO ONE (17:45)
[2021-02-11] MEDS ORDERED: BENADRYL25 M1 PO (17:57)
[2021-02-11] MEDS ORDERED: PREDNISONE20 MG PO (17:57)
[2021-02-11] MEDS ORDERED: FAMOTIDINE20 MG PO (17:57)
[2021-02-11] MEDS ORDERED: DIPHENHYDRAMINE HCL 25 MG CAP ONE (18:04)
[2021-02-11] MEDS ORDERED: PREDNISONE 10 MG TAB ONE (18:04)
[2021-02-11 18:23] VITALS: BP 118/67
== END 2021-02-11 18:26 | disposition home or self-care (01) ==
LOC: ER 17:33
DX: R21 Rash and other nonspecific skin eruption (principal); T78.40XA Allergy, unspecified, initial encounter; I10 Essential (primary) hypertension; E78.5 Hyperlipidemia, unspecified; K21.9 Gastro-esophageal reflux disease without esophagitis
CPT/HCPCS: 99283; J7512

== ENCOUNTER 2022-09-12 06:07 | Emergency (ER) | payer MEDICARE ==
[~2022-09-12] VITALS: Ht 162.6 cm; Wt 55.8 kg
[~2022-09-12 06:07] MED LIST changes: +BENADRYL25 M1 PO; +PREDNISONE20 MG PO
[2022-09-12] MEDS ORDERED: SODIUM CHLORIDE 0.9% 1000ML 1,000 ML IV STA (06:21)
[2022-09-12] MEDS ORDERED: LORAZEPAM INJ 2 MG/ML VIAL IV ONE (06:30)
[2022-09-12] MEDS ORDERED: LORAZEPAM INJ 2 MG/ML VIAL ONE (06:39)
[2022-09-12 06:41] LABS: BASOPHILS # (AUTO) 0.1 (0.0-0.1); BASOPHILS % 0.8 % (0.0-1.0); EOSINOPHILS # (AUTO) 0.1 (0.0-0.4); EOSINOPHILS % 1.8 % (0.0-6.0); HEMATOCRIT 42.5 % (34.2-44.1); HEMOGLOBIN 13.3 g/dL (12.0-16.0); LYMPHOCYTES # (AUTO) 2.2 (1.0-3.2); LYMPHOCYTES % 36.3 % (18.0-39.1); MEAN CORPUSCULAR HEMOGLOBIN 30.4 pg (28-32); MEAN CORPUSCULAR HGB CONC 31.3 g/dL (31-35); MONOCYTES # (AUTO) 0.6 (0.2-0.8); MONOCYTES % 10.2 % (4.4-11.3); NEUTROPHILS # (AUTO) 3.1 (2.1-6.9); NEUTROPHILS % 50.6 % (38.7-80.0); PLATELET COUNT 181 x10e3/uL (140-360); RED BLOOD COUNT 4.38 x10e6/uL (3.6-5.1); RED CELL DISTRIBUTION WIDTH 12.6 % (11.7-14.4)
[2022-09-12 06:45] LABS: INR 0.89; PROTHROMBIN TIME 12.9 seconds (11.9-14.5)
[2022-09-12 06:46] LABS: PARTIAL THROMBOPLASTIN TIME 27.2 seconds (23.8-35.5)
[2022-09-12 06:56] LABS: ALANINE AMINOTRANSFERASE 11 IU/L (0-55); ALBUMIN 4.1 g/dL (3.5-5.0); ALBUMIN/GLOBULIN RATIO 1.3 (0.8-2.0); ALKALINE PHOSPHATASE 61 IU/L (40-150); ANION GAP 17.5 mmol/L (8-16); BLOOD UREA NITROGEN 14 mg/dL (7-26); BUN/CREATININE RATIO 20 (6-25); CALCIUM 9.1 mg/dL (8.4-10.2); CARBON DIOXIDE 22 mmol/L (22-29); CHLORIDE 108 mmol/L (98-107); CREATINE KINASE 74 IU/L (29-168); CREATININE, SERUM 0.69 mg/dL (0.57-1.11); GLUCOSE 110 mg/dL (74-118); POTASSIUM 3.5 mmol/L (3.5-5.1); SODIUM 144 mmol/L (136-145)
[2022-09-12] MEDS ORDERED: KLONOPIN0.5 MG PO (07:46)
== END 2022-09-12 07:58 | disposition home or self-care (01) ==
LOC: ER 06:15
DX: R20.2 Paresthesia of skin (principal); F41.9 Anxiety disorder, unspecified; I10 Essential (primary) hypertension; E78.5 Hyperlipidemia, unspecified; K21.9 Gastro-esophageal reflux disease without esophagitis
CPT/HCPCS: 36415; 70450; 71045; 80053; 82550; 82553; 83735; 84484; 85025; 85610; 85730; 93005; 99284; J2060; J7030

== ENCOUNTER 2022-12-21 18:53 | Observation (INO) | payer MEDICARE ==
[~2022-12-21] VITALS: Ht 162.6 cm; Wt 55.8 kg
[~2022-12-21 18:53] MED LIST changes: +KLONOPIN0.5 MG PO; +VITAMIN B-121000 MCG PO; +VITAMIN D3 COM1 EACH PO
[2022-12-21] MEDS ORDERED: ONDANSETRON HCL INJ 2MG/ML 2ML 2 MG/ML VIAL IV STA ×2 (19:29→20:40)
[2022-12-21] MEDS ORDERED: SODIUM CHLORIDE 0.9% 1000ML 1,000 ML IV ONE (19:45)
[2022-12-21] MEDS ORDERED: SODIUM CHLORIDE 0.9% 1000ML 1,000 ML ONE (19:54)
[2022-12-21 20:07] LABS: BASOPHILS % 0.5 % (0.0-1.0); EOSINOPHILS % 0.4 % (0.0-6.0); HEMATOCRIT 44.5 % (34.2-44.1); HEMOGLOBIN 13.5 g/dL (12.0-16.0); LYMPHOCYTES # (AUTO) 1.2 (1.0-3.2); LYMPHOCYTES % 14.8 % (18.0-39.1); MEAN CORPUSCULAR HEMOGLOBIN 30.1 pg (28-32); MEAN CORPUSCULAR HGB CONC 30.3 g/dL (31-35); MEAN CORPUSCULAR VOLUME 99.3 fL (81-99); MONOCYTES # (AUTO) 0.5 (0.2-0.8); MONOCYTES % 5.5 % (4.4-11.3); NEUTROPHILS # (AUTO) 6.6 (2.1-6.9); NEUTROPHILS % 78.7 % (38.7-80.0); PLATELET COUNT 197 x10e3/uL (140-360); RED BLOOD COUNT 4.48 x10e6/uL (3.6-5.1); RED CELL DISTRIBUTION WIDTH 12.7 % (11.7-14.4)
[2022-12-21 20:24] LABS: ALBUMIN 4.2 g/dL (3.5-5.0); ALBUMIN/GLOBULIN RATIO 1.2 (0.8-2.0); ANION GAP 16.7 mmol/L (8-16); CALCIUM 9.4 mg/dL (8.4-10.2); CREATININE, SERUM 0.68 mg/dL (0.57-1.11); POTASSIUM 3.7 mmol/L (3.5-5.1)
[2022-12-21] MEDS ORDERED: SODIUM CHLORIDE 0.9% 1000ML 1,000 ML IV STA (20:40)
[2022-12-21] MEDS ORDERED: FAMOTIDINE 20 MG/2 ML VIAL IV STA (20:40)
[2022-12-21] MEDS ORDERED: IOPAMIDOL 370 MG/ML 100 ML INFUS..BTL INJ ONE (20:49)
[2022-12-21] MEDS ORDERED: Morphine 4mg INJECTION 4 MG/ML INJ IV PRN (21:30)
[2022-12-21 22:17] LABS: CREATINE KINASE MB 1.2 ng/mL (0-5.0)
[2022-12-21] MEDS: ONDANSETRON HCL INJ 2MG/ML 2ML 2 MG/ML VIAL IV PRN (23:27)
[2022-12-21] MEDS: SODIUM CHLORIDE 0.9% 1000ML 1,000 ML IV SCH (23:31)
[2022-12-22] VITALS (7 sets, daily range): BP systolic 103–134; BP diastolic 49–83
[2022-12-22] MEDS ORDERED: OMEPRAZOLE40 MG PO (00:06)
[2022-12-22] MEDS ORDERED: METOCLOPRAMIDE HCL 10 MG/2ML VIAL IV STA (00:32)
[2022-12-22] MEDS ORDERED: BISACODYL 5 MG TAB EC PO ONE ×2 (02:00→02:30)
[2022-12-22 05:53] LABS: BASOPHILS % 0.4 % (0.0-1.0); HEMATOCRIT 38.4 % (34.2-44.1); HEMOGLOBIN 12.4 g/dL (12.0-16.0); LYMPHOCYTES # (AUTO) 1.2 (1.0-3.2); LYMPHOCYTES % 17.9 % (18.0-39.1); MEAN CORPUSCULAR HEMOGLOBIN 30.2 pg (28-32); MEAN CORPUSCULAR HGB CONC 32.3 g/dL (31-35); MEAN CORPUSCULAR VOLUME 93.7 fL (81-99); MONOCYTES # (AUTO) 0.5 (0.2-0.8); MONOCYTES % 7.7 % (4.4-11.3); NEUTROPHILS # (AUTO) 5.1 (2.1-6.9); NEUTROPHILS % 73.7 % (38.7-80.0); PLATELET COUNT 181 x10e3/uL (140-360); RED CELL DISTRIBUTION WIDTH 12.8 % (11.7-14.4)
[2022-12-22 06:11] LABS: ALBUMIN 3.8 g/dL (3.5-5.0); ALBUMIN/GLOBULIN RATIO 1.3 (0.8-2.0); ANION GAP 11.1 mmol/L (8-16); CALCIUM 8.9 mg/dL (8.4-10.2); CREATININE, SERUM 0.64 mg/dL (0.57-1.11); POTASSIUM 4.1 mmol/L (3.5-5.1)
[2022-12-22] MEDS: SODIUM CHLORIDE 0.9% 1000ML 1,000 ML IV SCH ×2 (06:14→18:07)
[2022-12-22] MEDS: METOCLOPRAMIDE HCL 10 MG/2ML VIAL IV SCH ×3 (06:23→18:07)
[2022-12-22] MEDS: ONDANSETRON HCL INJ 2MG/ML 2ML 2 MG/ML VIAL IV PRN (06:23)
[2022-12-22 06:39] LABS: CREATINE KINASE MB 1.1 ng/mL (0-5.0)
[2022-12-22] MEDS ORDERED: METOCLOPRAMIDE HCL 10 MG/2ML VIAL ONE (12:31)
[2022-12-22] MEDS ORDERED: GLUCAGON FOR INJ 1 MG VIAL ONE (12:31)
[2022-12-22] MEDS ORDERED: LIDOCAINE HCL 2% LOCAL INJ 5 ML SDV VIAL INJ ONE (12:31)
[2022-12-22] MEDS ORDERED: PROPOFOL IV EMULSION 10 MG/ML 20 ML VIAL ONE (12:31)
[2022-12-22] MEDS ORDERED: HYOSCYAMINE SULFATE 0.5 MG/ML INJ ONE (12:31)
[2022-12-22 14:16] LABS: CREATINE KINASE 74 IU/L (29-168)
== END 2022-12-22 18:45 | disposition home or self-care (01) ==
LOC: ER 19:05 → ERHOLD 21:24 → MED/SURG3 23:03
PROVIDERS: ADMIT Family Medicine; ATTEND Family Medicine
DX: T50.995A Adverse effect of other drugs, medicaments and biological substances, initial encounter (principal); R11.10 Vomiting, unspecified; D12.0 Benign neoplasm of cecum; D12.2 Benign neoplasm of ascending colon; K57.30 Diverticulosis of large intestine without perforation or abscess without bleeding; K59.09 Other constipation; K64.8 Other hemorrhoids; K21.00 Gastro-esophageal reflux disease with esophagitis, without bleeding; Z71.3 Dietary counseling and surveillance; I10 Essential (primary) hypertension; Z71.89 Other specified counseling; E78.5 Hyperlipidemia, unspecified; M54.50 Low back pain, unspecified; E53.8 Deficiency of other specified B group vitamins; N81.10 Cystocele, unspecified; Z88.6 Allergy status to analgesic agent; Z88.8 Allergy status to other drugs, medicaments and biological substances; Z20.822 Contact with and (suspected) exposure to COVID-19; Z79.899 Other long term (current) drug therapy; Z68.25 Body mass index [BMI] 25.0-25.9, adult; Z80.0 Family history of malignant neoplasm of digestive organs
CPT/HCPCS: 36415 ×2; 45380; 45385; 74177; 80053 ×2; 82550 ×2; 82553 ×2; 83690; 84484 ×2; 85025 ×2; 88305; 93005; 99284; G0378 ×2; J1610; J1980; J2001; J2270; J2405 ×2; J2704; J2765; J7030 ×2; Q9967; U0002

== ENCOUNTER 2023-04-03 08:13 | Emergency (ER) | payer MEDICARE ==
[~2023-04-03] VITALS: Ht 162.6 cm; Wt 55.8 kg
[2023-04-03 08:16] VITALS: O2SAT 98
[2023-04-03] MEDS ORDERED: MUCINEX DM ER1 EACH PO (08:23)
[2023-04-03] MEDS ORDERED: ZYRTEC10 MG PO (08:23)
== END 2023-04-03 09:21 | disposition home or self-care (01) ==
LOC: ER 08:23
DX: R05.9 Cough, unspecified (principal); E78.5 Hyperlipidemia, unspecified; K21.9 Gastro-esophageal reflux disease without esophagitis
CPT/HCPCS: 71046; 99283

== ENCOUNTER 2023-08-30 11:15 | Outpatient (RCR) | payer MEDICARE ==
[~2023-08-30 11:15] MED LIST changes: +MUCINEX DM ER1 EACH PO; +ZYRTEC10 MG PO
== END 2023-09-20 ==
LOC: PT 11:15
PROVIDERS: ATTEND Physician Assistant
DX: M75.101 Unspecified rotator cuff tear or rupture of right shoulder, not specified as traumatic (principal)

== ENCOUNTER 2023-10-12 14:00 | Outpatient (RCR) | payer MEDICARE | END 2023-10-20 | LOC: PT 14:00 | PROVIDERS: ATTEND Physician Assistant | DX: S46.091A Other injury of muscle(s) and tendon(s) of the rotator cuff of right shoulder, initial encounter (principal) ==

== ENCOUNTER → 2023-12-06 | Day surgery (SDC) | payer MEDICARE ==
[2023-11-28 12:45] LABS: BASOPHILS # (AUTO) 0.1 (0.0-0.1); BASOPHILS % 0.7 % (0.0-1.0); EOSINOPHILS # (AUTO) 0.1 (0.0-0.4); EOSINOPHILS % 1.3 % (0.0-6.0); HEMATOCRIT 41.4 % (34.2-44.1); HEMOGLOBIN 13.1 g/dL (12.0-16.0); LYMPHOCYTES # (AUTO) 2.1 (1.0-3.2); LYMPHOCYTES % 29.2 % (18.0-39.1); MEAN CORPUSCULAR HEMOGLOBIN 30.6 pg (28-32); MEAN CORPUSCULAR HGB CONC 31.6 g/dL (31-35); MEAN CORPUSCULAR VOLUME 96.7 fL (81-99); MONOCYTES # (AUTO) 0.6 (0.2-0.8); MONOCYTES % 8.9 % (4.4-11.3); NEUTROPHILS # (AUTO) 4.2 (2.1-6.9); NEUTROPHILS % 59.6 % (38.7-80.0); PLATELET COUNT 187 x10e3/uL (140-360); RED BLOOD COUNT 4.28 x10e6/uL (3.6-5.1); RED CELL DISTRIBUTION WIDTH 12.4 % (11.7-14.4); WHITE BLOOD COUNT 7.06 x10e3/uL (4.8-10.8)
[~2023-12-06] MED LIST changes: +ACETAMINOPHEN 1000 MG/100 ML 100 ML IV ONE; +DEXAMETHASONE SOD PHOS 10 MG/1 ML VIAL ONE; +DEXAMETHASONE SOD PHOS INJ 4 MG/ML SDV ONE; +FENTANYL CITRATE/PF 100MCG/2 ML INJ ONE; +GLYCOPYRROLATE INJ 0.2 MG/ML VIAL ONE; +LACTATED RINGER'S 1,000 ML ONE; +LIDOCAINE HCL 2% LOCAL INJ 5 ML SDV VIAL INJ ONE; +MELOXICAM7.5 MG PO; +MIDAZOLAM HCL 2 MG/2 ML VIAL ONE; +NEOSTIGMINE 1 MG/ML 10ML VIAL ONE; +NEURONTIN300 MG PO; +ONDANSETRON HCL INJ 2MG/ML 2ML 2 MG/ML VIAL ONE; +PHENYLEPHRINE HCL 1% 10 MG/ML VIAL ONE; +PROPOFOL IV EMULSION 10 MG/ML 20 ML VIAL ONE; +ROCURONIUM BROMIDE 10 MG/ML 5ML VIAL IV ONE; +ROPIVACAINE 0.5% 5 MG/ML 30 ML SDV ONE; +SEVOFLURANE INHAL SOLN 250 ML PEN BTL ONE; +SUCCINYLCHOLINE CHLORIDE 20 MG/ML 10ML VIAL ONE; +SUGAMMADEX SODIUM 200 MG/2 ML VIAL IV ONE
[2023-12-06 09:53] VITALS: TEMP 97.2
[2023-12-06 11:20] VITALS: BP 130/71; PULSE 81; RESP 18; O2SAT 96
== END | disposition home or self-care (01) ==
LOC: OR 07:06
PROVIDERS: ATTEND Specialist
DX: S46.011A Strain of muscle(s) and tendon(s) of the rotator cuff of right shoulder, initial encounter (principal); M75.21 Bicipital tendinitis, right shoulder; E78.5 Hyperlipidemia, unspecified; K21.9 Gastro-esophageal reflux disease without esophagitis; V49.9XXA Car occupant (driver) (passenger) injured in unspecified traffic accident, initial encounter; W22.10XA Striking against or struck by unspecified automobile airbag, initial encounter; Z88.6 Allergy status to analgesic agent; Z88.8 Allergy status to other drugs, medicaments and biological substances; Z01.810 Encounter for preprocedural cardiovascular examination; Z01.812 Encounter for preprocedural laboratory examination; Z01.818 Encounter for other preprocedural examination; Z79.1 Long term (current) use of non-steroidal anti-inflammatories (NSAID); Z79.899 Other long term (current) drug therapy
CPT/HCPCS: 29827; 36415; 71046; 85025; 93005; C1713; J0131; J0330; J0690; J1100 ×2; J2001; J2250; J2371; J2405; J2704; J2710; J2795; J3010; J7121

== ENCOUNTER 2024-03-16 08:00 | Outpatient (RCR) | payer MEDICARE ==
[~2024-03-16 08:00] MED LIST changes: -ACETAMINOPHEN 1000 MG/100 ML 100 ML IV ONE; -DEXAMETHASONE SOD PHOS 10 MG/1 ML VIAL ONE; -DEXAMETHASONE SOD PHOS INJ 4 MG/ML SDV ONE; -FENTANYL CITRATE/PF 100MCG/2 ML INJ ONE; -GLYCOPYRROLATE INJ 0.2 MG/ML VIAL ONE; -LACTATED RINGER'S 1,000 ML ONE; -LIDOCAINE HCL 2% LOCAL INJ 5 ML SDV VIAL INJ ONE; -MIDAZOLAM HCL 2 MG/2 ML VIAL ONE; -NEOSTIGMINE 1 MG/ML 10ML VIAL ONE; -ONDANSETRON HCL INJ 2MG/ML 2ML 2 MG/ML VIAL ONE; -PHENYLEPHRINE HCL 1% 10 MG/ML VIAL ONE; -PROPOFOL IV EMULSION 10 MG/ML 20 ML VIAL ONE; -ROCURONIUM BROMIDE 10 MG/ML 5ML VIAL IV ONE; -ROPIVACAINE 0.5% 5 MG/ML 30 ML SDV ONE; -SEVOFLURANE INHAL SOLN 250 ML PEN BTL ONE; -SUCCINYLCHOLINE CHLORIDE 20 MG/ML 10ML VIAL ONE; -SUGAMMADEX SODIUM 200 MG/2 ML VIAL IV ONE
== END 2024-03-20 ==
LOC: PT 08:00
PROVIDERS: ATTEND Physician Assistant
DX: M75.101 Unspecified rotator cuff tear or rupture of right shoulder, not specified as traumatic (principal)

== ENCOUNTER → 2025-07-03 | Day surgery (SDC) | payer MEDICARE ==
[2025-06-28 15:14] LABS: BASOPHILS % 0.4 % (0.0-1.0); EOSINOPHILS % 0.4 % (0.0-6.0); LYMPHOCYTES % 30.7 % (18.0-39.1); MONOCYTES % 8.4 % (4.4-11.3); NEUTROPHILS % 59.5 % (38.7-80.0); RED CELL DISTRIBUTION WIDTH 14.1 % (11.7-14.4)
[~2025-07-03] MED LIST changes: +AMOXICILLIN250 MG PO; +AUGMENTIN 500-1 EACH PO; +CEFPODOXIME PR200 MG PO; +GLUCAGON FOR INJ 1 MG VIAL ONE; +HYOSCYAMINE SULFATE 0.5 MG/ML INJ ONE; +KETAMINE HCL INJ 50 MG/ML 10 ML VIAL ONE; +LACTATED RINGER'S 1,000 ML ONE; +LIDOCAINE HCL 2% LOCAL INJ 5 ML SDV VIAL INJ ONE; +PROPOFOL IV EMULSION 50 ML IV ONE
[2025-07-03 07:52] VITALS: TEMP 97
[2025-07-03 08:20] VITALS: BP 136/77; PULSE 96; RESP 16; O2SAT 97
== END | disposition home or self-care (01) ==
LOC: OR 05:24
PROVIDERS: ATTEND Internal Medicine Gastroenterology
DX: Z12.11 Encounter for screening for malignant neoplasm of colon (principal); D12.2 Benign neoplasm of ascending colon; K57.32 Diverticulitis of large intestine without perforation or abscess without bleeding; K64.8 Other hemorrhoids; K21.9 Gastro-esophageal reflux disease without esophagitis; E78.5 Hyperlipidemia, unspecified; N81.10 Cystocele, unspecified; Z88.6 Allergy status to analgesic agent; Z01.810 Encounter for preprocedural cardiovascular examination; Z01.812 Encounter for preprocedural laboratory examination; Z79.899 Other long term (current) drug therapy; Z80.0 Family history of malignant neoplasm of digestive organs
CPT/HCPCS: 36415; 45378; 45385; 85025; 93005; J1610; J1980; J2003

== ENCOUNTER 2025-07-04 09:43 | Emergency (ER) | payer MEDICARE ==
[~2025-07-04] VITALS: Ht 162.6 cm; Wt 65.3 kg
[~2025-07-04 09:43] MED LIST changes: -GLUCAGON FOR INJ 1 MG VIAL ONE; -HYOSCYAMINE SULFATE 0.5 MG/ML INJ ONE; -KETAMINE HCL INJ 50 MG/ML 10 ML VIAL ONE; -LACTATED RINGER'S 1,000 ML ONE; -LIDOCAINE HCL 2% LOCAL INJ 5 ML SDV VIAL INJ ONE; -PROPOFOL IV EMULSION 50 ML IV ONE
[2025-07-04 09:50] VITALS: PULSE 92; RESP 16; TEMP 98.4; O2SAT 98
== END 2025-07-04 10:47 | disposition home or self-care (01) ==
LOC: ER 09:52
DX: R39.89 Other symptoms and signs involving the genitourinary system (principal); E78.5 Hyperlipidemia, unspecified; K21.9 Gastro-esophageal reflux disease without esophagitis
CPT/HCPCS: 99283

== ENCOUNTER 2025-07-18 12:14 | Emergency (ER) | payer MEDICARE ==
[~2025-07-18] VITALS: Ht 162.6 cm; Wt 65.3 kg
[2025-07-18 13:08] VITALS: TEMP 98.4
[2025-07-18 14:33] LABS: BASOPHILS % 0.5 % (0.0-1.0); EOSINOPHILS % 1.3 % (0.0-6.0); LYMPHOCYTES % 21.8 % (18.0-39.1); MONOCYTES % 9.3 % (4.4-11.3); NEUTROPHILS % 66.8 % (38.7-80.0); RED CELL DISTRIBUTION WIDTH 14.6 % (11.7-14.4)
[2025-07-18] MEDS: SODIUM CHLORIDE 0.9% 1000ML 1,000 ML IV STA (14:35)
[2025-07-18 14:36] VITALS: PULSE 93; RESP 18
[2025-07-18 14:57] LABS: EST GLOMERULAR FILTRATION RATE 96.0 ML/MIN (>=60)
[2025-07-18] MEDS ORDERED: SODIUM CHLORIDE 0.9% 100 ML ONE (16:34)
[2025-07-18] MEDS ORDERED: IOPAMIDOL 370 MG/ML 100 ML INFUS..BTL INJ ONE (16:34)
[2025-07-18] MEDS ORDERED: DICYCLOMINE HCL20 MG PO (16:57)
[2025-07-18] MEDS ORDERED: AMOX TR-K CLV1 EAC2 PO (16:57)
[2025-07-18] MEDS ORDERED: ANUSOL-HC25 MG RC (16:59)
[2025-07-18 17:43] VITALS: BP 127/68; PULSE 67; RESP 18; TEMP 98; O2SAT 99
[2025-07-18 19:42] LABS: INR 0.96
== END 2025-07-18 17:30 | disposition home or self-care (01) ==
LOC: ER 13:28
DX: K62.5 Hemorrhage of anus and rectum (principal); K64.9 Unspecified hemorrhoids; K57.30 Diverticulosis of large intestine without perforation or abscess without bleeding; E78.5 Hyperlipidemia, unspecified; K21.9 Gastro-esophageal reflux disease without esophagitis
CPT/HCPCS: 36415; 74174; 80053; 83735; 85025; 85610; 85730; 99284; J2470; J7030; J7050; Q9967

== ENCOUNTER 2025-07-22 10:53 | Emergency (ER) | payer MEDICARE ==
[~2025-07-22] VITALS: Ht 162.6 cm; Wt 65.8 kg
[~2025-07-22 10:53] MED LIST changes: +AMOX TR-K CLV1 EAC2 PO; +ANUSOL-HC25 MG RC; +DICYCLOMINE HCL20 MG PO
[2025-07-22] MEDS ORDERED: IBUPROFEN600 MG PO (11:19)
[2025-07-22] MEDS ORDERED: TYLENOL325 MG PO (11:19)
[2025-07-22] MEDS ORDERED: IBUPROFEN 200 MG TAB ONE (11:38)
[2025-07-22] MEDS: IBUPROFEN 200 MG TAB PO ONE (11:45)
[2025-07-22 12:23] VITALS: PULSE 73; RESP 16; TEMP 98.3; O2SAT 97
== END 2025-07-22 12:23 | disposition home or self-care (01) ==
LOC: FSED 11:14
DX: S93.502A Unspecified sprain of left great toe, initial encounter (principal); M11.272 Other chondrocalcinosis, left ankle and foot; W01.0XXA Fall on same level from slipping, tripping and stumbling without subsequent striking against object, initial encounter; Y93.01 Activity, walking, marching and hiking; Y92.89 Other specified places as the place of occurrence of the external cause; E78.5 Hyperlipidemia, unspecified; K21.9 Gastro-esophageal reflux disease without esophagitis; Z87.19 Personal history of other diseases of the digestive system
CPT/HCPCS: 99284